=== PATIENT | female | born 1945 | race Caucasian/White ===

== ENCOUNTER → 2022-07-08 | Outpatient (REF) | payer MEDICARE ==
[2022-07-08 19:23] LABS: APPEARANCE, URINE MANUAL CLEAR (CLEAR); COLOR, URINE MANUAL YELLOW (YELLOW)
[2022-07-08 19:25] LABS: BILIRUBIN, URINE MANUAL NEGATIVE (NEGATIVE); BLOOD URINE MANUAL NEGATIVE (NEGATIVE); GLUCOSE, URINE (UA) MANUAL NEGATIVE (NEGATIVE); KETONE, URINE MANUAL 2+ mg/dL (NEGATIVE); LEUKOCYTE ESTERASE, URINE MAN NEGATIVE (NEGATIVE); NITRITE, URINE MANUAL NEGATIVE (NEGATIVE); PROTEIN, URINE MANUAL NEGATIVE (NEGATIVE); UROBILINOGEN, URINE MANUAL NORMAL (NORMAL)
[2022-07-08 19:36] LABS: BASO % 0.7 % (0.0-1.0); EOS % 0.4 % (0.0-3.0); HEMATOCRIT 38.7 % (36.0-47.0); HEMOGLOBIN 13.5 g/dl (12.0-15.5); LYMPH % 17.2 % (24.0-44.0); MEAN CORPUSCULAR HGB CONC 34.9 g/dl (32.0-36.5); MEAN CORPUSCULAR VOLUME 100.3 fl (80.0-96.0); MONO # 0.3 10^3/uL (0.0-0.8); MONO % 5.7 % (2.0-8.0); NEUTROPHILS # 4.3 10^3/uL (1.5-8.5); NEUTROPHILS % 75.8 % (36.0-66.0); PLATELET COUNT, AUTOMATED 295 10^3/uL (150-450); RED BLOOD COUNT 3.86 10^6/uL (4.00-5.40); WHITE BLOOD COUNT 5.7 10^3/uL (4.0-10.0)
[2022-07-08 19:50] LABS: TOTAL PROTEIN,RANDOM URINE 19.5 MG/DL (0.0-14.0)
[2022-07-08 19:53] LABS: C REACTIVE PROTEIN QUANTITATIV < 0.40 MG/DL (<1.0)
[2022-07-08 19:54] LABS: COMPLEMENT C3 161.5 MG/DL (90.0-170.0)
[2022-07-08 19:55] LABS: CREATININE,RANDOM URINE 167.2 MG/DL; ERYTHROCYTE SEDIMENTATION RATE 41 mm/hr (0-30)
[2022-07-08 19:58] LABS: ALBUMIN 3.9 G/DL (3.2-5.2); ALKALINE PHOSPHATASE 88 U/L (46-116); ALT/SGPT 18 U/L (7.0-40); AST/SGOT 20 U/L (<34); BILIRUBIN,TOTAL 0.4 MG/DL (0.3-1.2); BLOOD UREA NITROGEN 28 MG/DL (9-23); CALCIUM LEVEL 8.9 MG/DL (8.3-10.6); CARBON DIOXIDE LEVEL 28 MMOL/L (20-31); CHLORIDE LEVEL 104 MMOL/L (98-107); CREATININE FOR GFR 0.81 MG/DL (0.55-1.30); GLOMERULAR FILTRATION RATE > 60.0 (>39); GLUCOSE, FASTING 89 MG/DL (74-106); POTASSIUM SERUM 3.8 MMOL/L (3.5-5.1); SODIUM LEVEL 140 MMOL/L (136-145); TOTAL PROTEIN 7.2 G/DL (5.7-8.2)
[2022-07-15 18:07] LABS: COMPLEMENT TOTAL (CH50) > 60 U/mL (>41); HLA-B27 Negative (.)
== END ==
LOC: M SFHCRHEU 13:01
PROVIDERS: ATTEND Internal Medicine Rheumatology
DX: R76.8 Other specified abnormal immunological findings in serum (principal); M35.3 Polymyalgia rheumatica; L40.8 Other psoriasis; M35.00 Sjogren syndrome, unspecified